=== PATIENT | female | born 2000 | race Caucasian/White ===

== ENCOUNTER 2025-05-12 21:11 | Emergency (ER) | payer SELFPAY ==
[~2025-05-12] VITALS: Ht 177.8 cm; Wt 104.3 kg
[2025-05-12] MEDS: IV NS 0.9% 1,000 ML IV ONE (22:47)
[2025-05-12 22:48] LABS: PLATELET COUNT (AUTO) 215 K/uL (150-450); RED BLOOD CELL COUNT(AUTO) 4.83 MIL/uL (4.0-5.2); RED CELL DISTRIBUTION WIDTH 14.2 % (11.5-15.0); WHITE BLOOD COUNT (AUTO) 12.7 K/uL (4.3-11.0)
[2025-05-12 22:58] LABS: CALCIUM, SERUM 8.8 mg/dL (8.5-10.1); CREATININE 0.9 mg/dL (0.6-1.3); SODIUM SERUM 144.0 mmol/L (136-145); UREA NITROGEN, BLOOD 10.0 mg/dL (7-18)
[2025-05-12 23:04] VITALS: BP 125/71; TEMP 98.6; O2SAT 98
[2025-05-12 23:24] LABS: ASPARTATE AMINOTRANSFERASE 13.0 U/L (15-37); NT-PRO BNP 35.0 pg/mL (0-125); TOTAL PROTEIN, SERUM 6.1 g/dL (6.4-8.2)
== END 2025-05-12 23:09 | disposition left against medical advice (07) ==
LOC: ER 21:15
DX: R55 Syncope and collapse (principal); R07.9 Chest pain, unspecified; Z60.2 Problems related to living alone; R06.02 Shortness of breath
CPT/HCPCS: 36415; 71045-TC; 80053-TC; 83880; 84484-TC; 85025-TC